=== PATIENT | male | born 1995 | race Caucasian/White ===

== ENCOUNTER 2017-02-27 16:13 | Outpatient (CLI) | payer OTHER | END 2017-02-27 16:14 | disposition home or self-care (01) | LOC: CTENTCT 16:13 | PROVIDERS: ATTEND Specialist | DX: J32.9 Chronic sinusitis, unspecified (principal) | CPT/HCPCS: 70486 ==

== ENCOUNTER 2017-04-18 08:11 | Day surgery (SDC) | payer OTHER ==
[2017-04-17 13:15] VITALS: BMI 21.1
[2017-04-18] MEDS ORDERED: CEFAZOLIN/Water 2 GM/20 ML SYRINGE ONE (08:54)
[2017-04-18] MEDS ORDERED: Oxymetazoline HCl 0.05% ( 15 ML ) ONE ×2 (08:55→09:03)
[2017-04-18] MEDS ORDERED: Fentanyl 250 MCG/5 ML VIAL ONE (09:00)
[2017-04-18] MEDS ORDERED: Midazolam HCl 2 mg/2 ml Vial ONE (09:01)
[2017-04-18] MEDS ORDERED: Lidocaine 1% w/Epinephrine 1:200K 30 ML VIAL ONE (09:03)
[2017-04-18] MEDS ORDERED: Albuterol Sulfate HFA (OR ONLY) ONE (09:49)
[2017-04-18] MEDS ORDERED: methylPREDNISolone Acetate 40 mg/ml Vial ONE (09:49)
[2017-04-18] MEDS ORDERED: Bacitracin Zinc Ointment 30 gm TUBE ONE (10:16)
--- NOTE | 2017-04-18 11:52 | OP ---
PREOPERATIVE DIAGNOSES: Chronic sinusitis, deviated septum, hypertrophic inferior turbinates. POSTOPERATIVE DIAGNOSES: Chronic sinusitis, deviated septum, hypertrophic inferior turbinates. PROCEDURES PERFORMED: 1. Septoplasty. 2. Bilateral nasal endoscopy with maxillary antrostomy. 3. Bilateral nasal endoscopy with polypectomy. 4. Bilateral nasal endoscopy with frontal sinusotomy. 5. Bilateral nasal endoscopy with total ethmoidectomy. 6. Bilateral nasal endoscopy with sphenoidotomy. 7. Bilateral nasal endoscopy with submucosal resection of inferior turbinates. PROCEDURE IN DETAIL: After consent was obtained, the patient was identified, brought to the operatin g room, and placed on the operating room table in the supine position. Consent was obtained, notifyi ng the patient of the possibility of additional infections, bleeding, brain injury, and eye/orbital i njury. The patient was placed on the operating room table, and general endotracheal anesthesia and intravenous access was obtained. The patient was then positioned, prepped and draped for endoscopic sinus surgery. Nasal preparation included trimming nasal vestibular hairs and spraying in topical Af rin. We then placed Afrin topical solution on nasal pledgets and strategically located them intranas ally. The perinasal mucosa was injected with 1% lidocaine with 1:100,000 epinephrine in the submucop erichondrial plane of the septum, lateral nasal wall, and anterior to the uncinate. The patient was then prepped and draped in a sterile fashion and positioned for endoscopic sinus surgery. (Septoplasty) After local anesthesia was infiltrated into the submucoperichondrial plane, a standard Chaim incisi on was made with a #15 blade down to the level of the septal cartilage. The caudal elevator was used to elevate the mucoperichondrium from the underlying cartilage. We then proceeded beyond the bony c artilaginous junction and elevated the bony periosteum as well. Great attention was paid to the spur to prevent rent formation in the septal flap. A transcartilaginous incision was then made, while pre serving an adequate dorsal and caudal cartilaginous strut for tip support. The deformed cartilage wa s removed and disarticulated from the bony cartilaginous junction and maxillary crest. This was plac ed in saline and would later be crushed and returned to the mucoperichondrial envelope. We then elev ated the contralateral periosteum from the bony cartilaginous region and removed the deformed portion s of the bone and bony spurs. The cartilage was then crushed and placed back into the mucoperichondr ial envelope and the mucosa was re-approximated with a quilting stitch composed of rapidly absorbent gut suture. The Chaim incision was also closed with interrupted gut suture. At the completion of the case, Fernandez splints were placed and suture secured to the caudal septum. (Maxillary Antrostomy) The uncinate was then identified and the extent of the uncinate was appreciated by out-fracturing the uncinate with the ball-tip probe. We then used the sickle blade to disarticulate the uncinate from the lateral nasal wall. This was then removed with straight biting and upbiting punches with the rem aining shrouds of mucosa and bony septum removed with the micro-debrider. The natural os of the maxi llary sinus was then identified and enlarged with the maxillary punches and back biting forceps. (Frontal Sinusotomy) The anterior face of the ethmoid bulla was entered and with the micro-debrider, dissection continued posteriorly to the ground lamella. The limits of dissection included the insertion of the middle tur binate, medial orbital wall, and base of skull. We similarly identified the frontal recess and remov ed shrouds of bone and debris in that region to obtain patency into the Agger Nasi region and frontal recess. We then entered the ground lamella and its anteroinferior aspect and proceeded posteriorly, opening the posterior ethmoid air-cell system. Again, the limits of dissection included the base of skull and medial orbital wall. (Total Ethmoidectomy) The anterior face of the ethmoid bulla was entered and with the micro-debrider, dissection continued posteriorly to the ground lamella. The limits of dissection included the insertion of the middle tur binate, medial orbital wall, and base of skull. We similarly identified the frontal recess and remov ed shrouds of bone and debris in that region to obtain patency into the agger nasi region and frontal recess. We then entered the ground lamella and its anteroinferior aspect and proceeded posteriorly, opening the posterior ethmoid air-cell system. Again, the limits of dissection included the base of skull and medial orbital wall. (Sphenoidotomy) The anterior face of the sphenoid was identified and entered in its extreme anteroinferior aspect. A sphenoid punch was then used to enlarge the sphenoidotomy and no injury to the optic nerve or internet consultant al carotid artery occurred. (Outfracture of the Inferior Turbinates) The inferior turbinates were visualized under endoscopic visualization and outfractured with the elev ator. The inferolateral edge of the inferior turbinate was then cauterized along its length with the suction cautery without difficulty. (Outfracture & Cautery of the Inferior Turbinates) The inferior turbinates were visualized with a 0-degree endoscope and outfractured with a Marvin eleva tor. The inferior medial aspect was cauterized with the electrocautery. Hemostasis was obtained. A fter adequate airway was established, we turned our attention to the contralateral side and used a si milar procedure. Again, a [place] elevator was used to outfracture inferior turbinates under endoscopi c visualization. With a suction cautery, the free inferior medial aspect was cauterized under direct visualization along the length of the inferior turbinate. At the completion of the case, Rice keel splints were placed in the ethmoid cavities after the ethmoi dectomy. There were no complications. The patient tolerated the procedure well and was discharged t o the recovery room in stable condition prior to return to the preoperative Day Stay with [facility]. Prescriptions for pain medication and antibiotics were provided. The patient received intramuscular Depo-Medrol during the case.
[2017-04-18] MEDS ORDERED: traMADol HCl 50 MG TAB ONE (12:21)
[2017-04-18] MEDS ORDERED: Ondansetron ODT 4 MG TAB ONE (13:13)
[2017-04-18] MEDS ORDERED: Lidocaine 1% PF 5 ML VIAL ONE (15:13)
[2017-04-18] MEDS ORDERED: Glycopyrrolate 0.2 MG/ML 5 ML SYRINGE ONE (15:13)
[2017-04-18] MEDS ORDERED: PHENYLEPHRINE-NS 100 MCG/ML 10 ML SYRINGE ONE (15:13)
[2017-04-18] MEDS ORDERED: Propofol 200 MG/20 ML VIAL ONE (15:13)
[2017-04-18] MEDS ORDERED: Ondansetron HCl/PF 4 MG/2 ML Vial ONE (15:13)
== END 2017-04-18 13:22 | disposition home or self-care (01) ==
LOC: SDC 08:11
PROVIDERS: ATTEND Specialist
PROC: 099Q8ZZ Drainage of Right Maxillary Sinus, Via Natural or Artificial Opening Endoscopic (ICD-10-PCS; principal; 2017-04-18)
PROC: 09BU8ZZ Excision of Right Ethmoid Sinus, Via Natural or Artificial Opening Endoscopic (ICD-10-PCS; principal; 2017-04-18)
PROC: 09SL8ZZ Reposition Nasal Turbinate, Via Natural or Artificial Opening Endoscopic (ICD-10-PCS; principal; 2017-04-18)
PROC: 09BV8ZZ Excision of Left Ethmoid Sinus, Via Natural or Artificial Opening Endoscopic (ICD-10-PCS; principal; 2017-04-18)
PROC: 09BT8ZZ Excision of Left Frontal Sinus, Via Natural or Artificial Opening Endoscopic (ICD-10-PCS; principal; 2017-04-18)
PROC: 09BW8ZZ Excision of Right Sphenoid Sinus, Via Natural or Artificial Opening Endoscopic (ICD-10-PCS; principal; 2017-04-18)
PROC: 09BX8ZZ Excision of Left Sphenoid Sinus, Via Natural or Artificial Opening Endoscopic (ICD-10-PCS; principal; 2017-04-18)
PROC: 09BS8ZZ Excision of Right Frontal Sinus, Via Natural or Artificial Opening Endoscopic (ICD-10-PCS; principal; 2017-04-18)
PROC: 09BM0ZZ Excision of Nasal Septum, Open Approach (ICD-10-PCS; principal; 2017-04-18)
PROC: 099R8ZZ Drainage of Left Maxillary Sinus, Via Natural or Artificial Opening Endoscopic (ICD-10-PCS; principal; 2017-04-18)
DX: J32.9 Chronic sinusitis, unspecified (principal); J34.3 Hypertrophy of nasal turbinates; J34.2 Deviated nasal septum; J33.9 Nasal polyp, unspecified; J34.89 Other specified disorders of nose and nasal sinuses; Z79.51 Long term (current) use of inhaled steroids; Z79.899 Other long term (current) drug therapy; Z98.890 Other specified postprocedural states
CPT/HCPCS: J1030; J2001; J2250; J2405; J2704; J3010; Q0162

== ENCOUNTER 2019-05-22 14:25 | Outpatient (CLI) | payer OTHER | END 2019-05-22 14:26 | disposition home or self-care (01) | LOC: CTENTCT 14:25 | PROVIDERS: ATTEND Specialist | DX: J32.8 Other chronic sinusitis (principal) | CPT/HCPCS: 70486 ==

== ENCOUNTER 2019-07-16 09:25 | Day surgery (SDC) | payer OTHER ==
[2019-07-15 09:29] VITALS: BMI 21.7
[2019-07-16] MEDS ORDERED: Ondansetron PF 4 MG/2 ML Vial ONE (09:48)
[2019-07-16] MEDS ORDERED: Rocuronium Bromide 10 MG/ML (10ML VIAL) ONE (09:48)
[2019-07-16] MEDS ORDERED: Lidocaine 1% PF 5 ML VIAL ONE (09:48)
[2019-07-16] MEDS ORDERED: Dexamethasone 20 MG/5 ML VIAL ONE (09:48)
[2019-07-16] MEDS ORDERED: PROPOFOL 200 MG/20 ML VIAL ONE (09:48)
[2019-07-16] MEDS ORDERED: Glycopyrrolate 0.2 MG/ML 5 ML SYRINGE ONE (09:48)
[2019-07-16] MEDS ORDERED: AFRIN NASAL MIST 15 ML BOT ONE ×2 (10:14→11:27)
[2019-07-16] MEDS ORDERED: Lidocaine 1% w/Epinephrine 1:100K 20 ML VIAL ONE (11:27)
[2019-07-16] MEDS ORDERED: Bacitracin Zinc Ointment 30 gm TUBE ONE (11:27)
[2019-07-16] MEDS ORDERED: EPINEPHrine 1 MG/ML AMP ONE (11:27)
[2019-07-16] MEDS ORDERED: Fentanyl 100 MCG/2 ML VIAL ONE (11:31)
[2019-07-16] MEDS ORDERED: Midazolam HCl 2 mg/2 ml Vial ONE (11:31)
[2019-07-16] MEDS ORDERED: Triamcinolone 40 MG/ML VIAL ONE (12:29)
[2019-07-16] MEDS ORDERED: SUGAMMADEX SODIUM 500 MG/5 ML VIAL ONE (12:37)
[2019-07-16] MEDS ORDERED: SUGAMMADEX SODIUM 200 MG/2 ML VIAL ONE (12:37)
[2019-07-16] MEDS ORDERED: Hydrocodone-Acetamin 15 ML UDCUP ONE (14:53)
--- NOTE | 2019-07-21 09:08 | OP ---
DATE OF PROCEDURE: PREOPERATIVE DIAGNOSES: 1. Allergic fungal sinusitis. 2. Nasal polyposis. 3. Chronic sinusitis. POSTOPERATIVE DIAGNOSES: 1. Allergic fungal sinusitis. 2. Nasal polyposis. 3. Chronic sinusitis. PROCEDURE PERFORMED: 1. Left frontal sinusotomy with removal of tissue. 2. Left maxillary antrostomy with removal of tissue. 3. Left total ethmoidectomy. 4. Left sphenoidotomy with removal of tissue. 5. Left nasal endoscopy with nasal polypectomy. 6. Right ethmoidectomy. 7. [employer] stereotactic image guidance. FINDINGS: The patient had extensive polyps and allergic mucin in the left sinus. Ultimately, photographs were obtained at the completion of procedure, showed postoperative results and openings into all sinuses without any residual allergic fungal disease. DESCRIPTION OF PROCEDURE: LEFT FRONTAL SINUSOTOMY WITH REMOVAL OF TISSUE: Following the ethmoidectomy, we then turned our attention to the frontal nasal recess. The agger nasi cells were addressed and the frontal recess was exposed. The natural opening to the frontal sinus was identified. At this point, any obstructing shrouds of mucosa and bony fragments were removed with a curved microdebrider. The wound was then examined and found to be free of any obstructing debris. We then turned our attention to the contralateral side and performed a similar procedure again under endoscopic visualization using a 45-degree scope. We were able to visualize the frontal recess. Obstructing shrouds of mucosa and bone were removed with a microdebrider. The natural os of frontal sinus was identified and enlarged and irrigated. At this point, the frontal sinusotomy was completed and we turned to the next area of concern. LEFT MAXILLARY ANTROSTOMY WITH REMOVAL OF TISSUE: The uncinate was then identified and the extent of the uncinate was appreciated by out-fracturing the uncinate with the ball-tip probe. We then used the sickle blade to disarticulate the uncinate from the lateral nasal wall. This was then removed with straight biting and upbiting punches with the remaining shrouds of mucosa and bony septum removed with the micro-debrider. The natural os of the maxillary sinus was then identified and enlarged with the maxillary punches and back biting forceps. LEFT TOTAL ETHMOIDECTOMY: The anterior face of the ethmoid bulla was entered and with the micro-debrider, dissection continued posteriorly to the ground lamella. The limits of dissection included the insertion of the middle turbinate, medial orbital wall, and base of skull. We similarly identified the frontal recess and removed shrouds of bone and debris in that region to obtain patency into the agger nasi region and frontal recess. We then entered the ground lamella and its anteroinferior aspect and proceeded posteriorly, opening the posterior ethmoid air-cell system. Again, the limits of dissection included the base of skull and medial orbital wall. LEFT SPHENOIDOTOMY WITH REMOVAL OF TISSUE: The anterior face of the sphenoid was identified and entered in its extreme anteroinferior aspect. A sphenoid punch was then used to enlarge the sphenoidotomy and no injury to the optic nerve or internal carotid artery occurred. LEFT NASAL ENDOSCOPY WITH NASAL POLYPECTOMY: Under endoscopic visualization, the nasal cavity was systematically examined and encountered large inflammatory polyps. These polyps were infiltrated 1% lidocaine with 1:100,000 epinephrine. The polyps were then addressed using the [employer] shaver. Then, the polyps were removed with care not to injure the surrounding normal mucosa. Samples of polyps were taken and sent for histologic evaluation. Bleeding was then controlled. RIGHT ETHMOIDECTOMY: The anterior face of the ethmoid bulla was entered and with the micro-debrider, dissection continued posteriorly to the ground lamella. The limits of dissection included the insertion of the middle turbinate, medial orbital wall, and base of skull. We similarly identified the frontal recess and removed shrouds of bone and debris in that region to obtain patency into the agger nasi region and frontal recess. We then entered the ground lamella and its anteroinferior aspect and proceeded posteriorly, opening the posterior ethmoid air-cell system. Again, the limits of dissection included the base of skull and medial orbital wall. [employer] STEREOTACTIC IMAGE GUIDANCE: Job ID: [id number]
== END 2019-07-16 15:48 | disposition home or self-care (01) ==
LOC: SDC 09:25
PROVIDERS: ATTEND Specialist
PROC: 099R8ZZ Drainage of Left Maxillary Sinus, Via Natural or Artificial Opening Endoscopic (ICD-10-PCS; principal; 2019-07-16)
PROC: 09TV8ZZ Resection of Left Ethmoid Sinus, Via Natural or Artificial Opening Endoscopic (ICD-10-PCS; principal; 2019-07-16)
PROC: 09BX8ZZ Excision of Left Sphenoid Sinus, Via Natural or Artificial Opening Endoscopic (ICD-10-PCS; principal; 2019-07-16)
PROC: 8E09XBZ Computer Assisted Procedure of Head and Neck Region (ICD-10-PCS; principal; 2019-07-16)
PROC: 09TU8ZZ Resection of Right Ethmoid Sinus, Via Natural or Artificial Opening Endoscopic (ICD-10-PCS; principal; 2019-07-16)
PROC: 09BT8ZZ Excision of Left Frontal Sinus, Via Natural or Artificial Opening Endoscopic (ICD-10-PCS; principal; 2019-07-16)
DX: J32.9 Chronic sinusitis, unspecified (principal); J33.9 Nasal polyp, unspecified; J45.909 Unspecified asthma, uncomplicated; J02.9 Acute pharyngitis, unspecified; Z98.890 Other specified postprocedural states; Z79.899 Other long term (current) drug therapy
CPT/HCPCS: 93005; 93010; J0171; J1100; J2001; J2250; J2405; J2704; J3010; J3301

== ENCOUNTER 2019-11-23 09:48 | Outpatient (CLI) | payer OTHER | END 2019-11-23 09:49 | disposition home or self-care (01) | LOC: CTENTCT 09:48 | PROVIDERS: ATTEND Otolaryngology Plastic Surgery within the Head & Neck | DX: J32.9 Chronic sinusitis, unspecified (principal) | CPT/HCPCS: 70486 ==

== ENCOUNTER 2019-12-04 05:34 | Outpatient (CLI) | payer OTHER ==
[2019-12-05 14:40] LABS: SARS-CoV-2 MS2 Positive; SARS-CoV-2 N Gene Negative; SARS-CoV-2 S Gene Negative; SARS-CoV-2 by NAA Not Detected (NotDetected); SARS-CoV-2 orf1ab Negative
== END 2019-12-04 05:35 | disposition home or self-care (01) ==
LOC: LABBT 05:34
PROVIDERS: ATTEND Otolaryngology Plastic Surgery within the Head & Neck
DX: Z01.812 Encounter for preprocedural laboratory examination (principal); Z11.59 Encounter for screening for other viral diseases; J33.9 Nasal polyp, unspecified; J32.1 Chronic frontal sinusitis; J32.2 Chronic ethmoidal sinusitis; J32.3 Chronic sphenoidal sinusitis; J34.89 Other specified disorders of nose and nasal sinuses; J32.0 Chronic maxillary sinusitis
CPT/HCPCS: 87635; U0003

== ENCOUNTER 2019-12-09 06:15 | Day surgery (SDC) | payer OTHER ==
[2019-12-03 13:40] VITALS: BMI 23.1
[2019-12-09] MEDS ORDERED: AFRIN NASAL MIST 15 ML BOT ONE ×2 (06:35→06:45)
[2019-12-09] MEDS ORDERED: Midazolam HCl 2 mg/2 ml Vial ONE (06:40)
[2019-12-09] MEDS ORDERED: Lidocaine 4% Topical Sol 50 ML BOT ONE (06:40)
[2019-12-09] MEDS ORDERED: Fentanyl 250 MCG/5 ML VIAL ONE (06:40)
[2019-12-09] MEDS ORDERED: Albuterol Sulfate HFA (OR ONLY) ONE (06:40)
[2019-12-09] MEDS ORDERED: Bacitracin Zinc Ointment 30 gm TUBE ONE (06:45)
[2019-12-09] MEDS ORDERED: Lidocaine 1% w/Epinephrine 1:100K 20 ML VIAL ONE (06:45)
[2019-12-09] MEDS ORDERED: Acetaminophen 500 MG TAB ONE ×2 (07:02→07:16)
[2019-12-09] MEDS ORDERED: HYDROcodone/Acetaminophen 5/325 mg Tablet ONE (09:03)
[2019-12-09] MEDS ORDERED: Rocuronium Bromide 10 MG/ML (10ML VIAL) ONE (10:06)
[2019-12-09] MEDS ORDERED: PROPOFOL 200 MG/20 ML VIAL ONE (10:06)
[2019-12-09] MEDS ORDERED: Glycopyrrolate 0.2 MG/ML 5 ML SYRINGE ONE (10:06)
[2019-12-09] MEDS ORDERED: Lidocaine 1% PF 5 ML VIAL ONE (10:06)
[2019-12-09] MEDS ORDERED: Dexamethasone 20 MG/5 ML VIAL ONE (10:06)
[2019-12-09] MEDS ORDERED: Ondansetron PF 4 MG/2 ML Vial ONE (10:06)
--- NOTE | 2019-12-10 14:48 | OP ---
DATE OF PROCEDURE: 12/09/2019 PREOPERATIVE DIAGNOSES: 1. Chronic rhinosinusitis. 2. Bilateral nasal polyposis. 3. Allergic fungal sinusitis. 4. Nasal obstruction. 5. Bilateral inferior turbinate hypertrophy. 6. Nasal septal perforation. POSTOPERATIVE DIAGNOSES: 1. Chronic rhinosinusitis. 2. Bilateral nasal polyposis. 3. Allergic fungal sinusitis. 4. Nasal obstruction. 5. Bilateral inferior turbinate hypertrophy. 6. Nasal septal perforation. PROCEDURES: 1. Bilateral endoscopic sinus surgery, total ethmoidectomies with sphenoidotomies and removal of tissue. 2. Bilateral endoscopic sinus surgery, maxillary antrostomies with removal of tissue. 3. Bilateral endoscopic sinus surgery, frontal sinus exploration with removal of tissue. 4. Bilateral inferior turbinate submucosal resection. 5. [employer] stereotactic image-guided surgery. ESTIMATED BLOOD LOSS: 50 mL. COMPLICATIONS: None. ANESTHESIA: GETA. DESCRIPTION OF PROCEDURE: The patient was taken to the operating room and placed supine on the table. General endotracheal anesthesia was obtained by the Anesthesia Staff. Tube was secured in the left lower lip. The patient was then placed in the beach chair position and was prepped and draped for standard nasal procedures. Afrin pledgets were placed in nasal cavity. Following this, the [employer] image-guided system was set up and calibrated, and was noted to be within 1 mm of accuracy. Following this, the 0-degree endoscope was advanced in the nasal cavity along with the 1% lidocaine with 1:100,000 epinephrine was injected into the middle turbinates, inferior turbinates, and lateral nasal wall as well as the nasal polyps. Nasal polyps were protruding throughout the nasal cavity bilaterally causing near-complete obstruction on the and approximately 80% obstruction on the left. Following this, the visualized nasal polyps were removed using Blakesley forceps and the 0-degree microdebrider. When the polyps were removed, the lateral wall landmarks were visualized and the middle turbinate was identified. The middle turbinate was now visualized. With the Victor elevator, nasal polyps and allergic fungal debris was removed throughout the ethmoidal sinuses beginning with the anterior ethmoidal sinuses and working to the posterior ethmoidal sinuses bilaterally. Nasal tissue, nasal polyps, and allergic fungal debris was removed. Following this, the image-guided system was used to identify the natural maxillary sinus ostia and widen the ostia using a 40-degree microdebrider blade and curved suction. Nasal polyps and fungal debris was removed from the maxillary sinuses. Following this, the sphenoid sinus was identified using the image-guided system. The anterior wall of the sphenoid sinus was then punctured using 0-degree microdebrider bilaterally. The sphenoid sinus ostia was then widened in a medial and inferior direction bilaterally. Following this, a 45-degree endoscope was used to visualize the frontal recess and frontal sinus ostia bilaterally. This area was obstructed by nasal polyps and the nasal polyps were removed from the frontal sinus ostia area, and allergic fungal debris was removed from the frontal sinuses bilaterally. Following this, the inferior turbinates were punctured on the anterior-inferior aspect with the submucosal microdebrider and submucosal resection was performed of the anterior and inferior portions of the inferior turbinates bilaterally. Following this, the nasal cavity was irrigated. Steroid-implanted stents were placed within the sphenoid sinus ostia and frontal sinus ostia bilaterally. Following this, the nasal cavity was irrigated again and the NasoPore pack was placed within the middle meatus bilaterally. The patient tolerated the procedure well. Job ID: [id number]
[2019-12-11 13:37] LABS: Fungus Stain Final report (.)
== END 2019-12-09 10:10 | disposition home or self-care (01) ==
LOC: SDC 06:15
PROVIDERS: ATTEND Otolaryngology Plastic Surgery within the Head & Neck
PROC: 09BS8ZZ Excision of Right Frontal Sinus, Via Natural or Artificial Opening Endoscopic (ICD-10-PCS; principal; 2019-12-09)
PROC: 09TL8ZZ Resection of Nasal Turbinate, Via Natural or Artificial Opening Endoscopic (ICD-10-PCS; principal; 2019-12-09)
PROC: 09BQ8ZZ Excision of Right Maxillary Sinus, Via Natural or Artificial Opening Endoscopic (ICD-10-PCS; principal; 2019-12-09)
PROC: 09BX8ZZ Excision of Left Sphenoid Sinus, Via Natural or Artificial Opening Endoscopic (ICD-10-PCS; principal; 2019-12-09)
PROC: 09BW8ZZ Excision of Right Sphenoid Sinus, Via Natural or Artificial Opening Endoscopic (ICD-10-PCS; principal; 2019-12-09)
PROC: 09TV8ZZ Resection of Left Ethmoid Sinus, Via Natural or Artificial Opening Endoscopic (ICD-10-PCS; principal; 2019-12-09)
PROC: 09BR8ZZ Excision of Left Maxillary Sinus, Via Natural or Artificial Opening Endoscopic (ICD-10-PCS; principal; 2019-12-09)
PROC: 09BT8ZZ Excision of Left Frontal Sinus, Via Natural or Artificial Opening Endoscopic (ICD-10-PCS; principal; 2019-12-09)
PROC: 8E09XBZ Computer Assisted Procedure of Head and Neck Region (ICD-10-PCS; principal; 2019-12-09)
PROC: 09TU8ZZ Resection of Right Ethmoid Sinus, Via Natural or Artificial Opening Endoscopic (ICD-10-PCS; principal; 2019-12-09)
DX: J32.4 Chronic pansinusitis (principal); J33.9 Nasal polyp, unspecified; J30.89 Other allergic rhinitis; J34.89 Other specified disorders of nose and nasal sinuses; J34.3 Hypertrophy of nasal turbinates; Z79.2 Long term (current) use of antibiotics; Z79.899 Other long term (current) drug therapy; Z98.890 Other specified postprocedural states
CPT/HCPCS: 87070; 87076; 87077; 87102; 87186; 87205; 87206; C2625; J1100; J2250; J2405; J2704; J3010